=== PATIENT | female | born 1985 | race Caucasian/White ===

== ENCOUNTER → 2017-12-30 16:23 | Outpatient (CLI) | payer OTHER, MEDICAID, SELFPAY ==
[2017-12-31 15:25] LABS: Strep Grp B PCR POS for Grp B Strep
== END ==
PROVIDERS: Family Provider Physician Assistant; PCP Physician Assistant; Visit Provider Obstetrics & Gynecology
DX: Z34.83 Encounter for supervision of other normal pregnancy, third trimester (principal)
CPT/HCPCS: 87653

== ENCOUNTER 2018-01-16 05:36 | Inpatient (IN) | payer OTHER, MEDICAID, SELFPAY ==
[2018-01-16] VITALS (8 sets, daily range): BP systolic 107–132; BP diastolic 47–70; PULSE 77–91; RESP 12–16; TEMP 36.3–36.8; O2SAT 97
[2018-01-16] MEDS: LACTATED RINGERS 1,000 ML 900 ML IV (06:30)
[2018-01-16] MEDS: LACTATED RINGERS 1,000 ML 1000 ML IV (07:39)
--- NOTE | 2018-01-16 07:52 | SUR.OPER ---
Supine on Padded OR bed, head on pillow, safety belt at thigh, arms secured on padded arm boards at <90 degrees abduction. Bump under right buttock. Legs uncrossed with pillow under knees, gel pad to heels, tape over blanket to lower legs.
[2018-01-16 07:56] LABS: Add Manual Diff / Slide Review NO; Basophils Percent Auto 0.2 % (0-2); Eosinophils Percent Auto 0.6 % (2-4); Hemoglobin 12.9 g/dL (12.0-16.0); Mean Corpuscular HGB Conc 33.9 % (30-36); Mean Corpuscular Hemoglobin 29.5 PG (26-34); Mean Corpuscular Volume 87.2 fL (80-100); Monocytes Percent Auto 6.1 % (3-14); Neutrophils Absolute Auto 6000 /uL (3000-5900); Neutrophils Percent Auto 68.1 % (50-75); Platelet Count 340 X10^3/uL (150-400); Red Blood Cell Count 4.36 X10^6/uL (4.0-5.2); White Blood Cell Count 8.8 X10^3/uL (4.5-11.0)
[2018-01-16] MEDS: CEFAZOLIN 2 GM/100 ML FROZ.PIGGY IV (08:10)
[2018-01-16] MEDS: SODIUM CHLORIDE 0.9% IV (08:38)
[2018-01-16] MEDS: OXYTOCIN IV (08:38)
--- NOTE | 2018-01-16 08:45 | SUR.OPER ---
FHT's 130. TOB live male @8842. Cord blood x 2 and placenta to L&D with OB RN.
--- NOTE | 2018-01-16 09:36 | PM.PREOP ---
Pre-operative Note Interval Note Pre-op Check: Yes History & Physical Reviewed by Physician Changes: No
[2018-01-16] MEDS: LACTATED RINGERS 1,000 ML 125 ML IV ×2 (10:30→18:38)
[2018-01-16] MEDS: OXYCODONE/ACETAMINOPHEN 5/325 TABLET 1 TAB PO ×2 (15:08→18:52)
[2018-01-16] MEDS: KETOROLAC 30 MG/ML VIAL IV ×2 (15:08→21:12)
[2018-01-16] MEDS: OXYCODONE/ACETAMINOPHEN 5/325 TABLET 2 TAB PO (23:20)
[2018-01-17] MEDS: KETOROLAC 30 MG/ML VIAL IV (03:45)
[2018-01-17 06:17] LABS: Hematocrit 32.1 % (36-46); Hemoglobin 10.9 g/dL (12.0-16.0)
--- NOTE | 2018-01-17 06:36 | PM.GYNOP.1 ---
Operative Date/Time/Diagnoses Date of procedure: 01/16/18 Time of procedure: 09:15 Pre-op diagnosis: Intrauterine at 39 weeks gestation Previous section Post-op diagnosis: same Procedure: Procedures Operation Date: 01/16/18 07:45 Actual Procedures Side Surgeon p Section - Repeat Yesica Lainez MD Repeat section Indications: 39 weeks gestation Previous section Surgeon: Yesica Lainez Motorcycle Subassembly Repairer: Ann Lazaro Anesthesia Type: Spinal Operative Notes Findings: Live male Normal uterus tubes and ovaries Closure Type: primary Specimen(s): other (Cord bloods, placenta) Applied: catheter Estimated blood loss (mL): 400 Blood products transfused: none Procedure in detail: The patient was taken to the operating room where she was placed in the seated position. Spinal anesthesia with Duramorph was administered. The patient was then placed in the dorsal supine position with a leftward tilt. She was prepped and draped in the usual sterile fashion. A timeout was performed. After spinal analgesia was found to be adequate, a Pfannenstiel skin incision was made through the previous incision and carried through to the underlying layer fascia. The fascia was nicked in the midline, and the incision extended bilaterally with the Perkins scissors. The superior aspect of the fascial incision was grasped with a Monument clamps, elevated, and the underlying rectus muscles dissected off sharply and bluntly. Attention was then turned to the inferior aspect of this incision which in a similar fashion was grasped with a Lito clamps, elevated, and the underlying rectus muscles dissected off sharply and bluntly. The rectus muscles were in the midline. The peritoneum was identified, grasped between 2 hemostats, and entered sharply with the Metzenbaum scissors. This incision was extended superiorly and inferiorly with good visualization of the bladder. The bladder blade was inserted. The vesicouterine peritoneum was identified, grasped with the pickup, and entered sharply with the Metzenbaum scissors. This incision was extended bilaterally, and the bladder flap was created digitally. The bladder blade was reinserted. The lower uterine segment was incised in a transverse fashion with the scalpel. Upon entering the amniotic sac there was moderate amount of clear amniotic fluid. The 's head was delivered without difficulty. The nose and mouth were suctioned with bulb suction. The remainder of the body delivered without difficulty. The cord was double clamped and cut. The was handed off to waiting RN and RT. The placenta was delivered manually. The uterus was cleared of all clots and debris. The uterine incision was repaired with #1 chromic in a running interlocking fashion, and a second layer the same suture was used for an imbricating layer. Hemostasis was achieved. The tubes and ovaries were examined and were found to be normal. The gutters were cleared of all clots and debris. The bladder flap was reapproximated using 2-0 Vicryl in a running fashion. The parietal peritoneum was closed using 2-0 Vicryl in a running fashion. The fascia was reapproximated using 0 Vicryl in a running fashion. The subcutaneous layer was copiously irrigated with warm normal saline. 5 simple interrupted sutures of 3-0 Vicryl were placed to reapproximate the subcutaneous layer. The skin was closed with 4-0 undyed Vicryl in a subcuticular fashion. Steri-Strips were placed. An Aquacel dressing was placed. The uterus was expressed of a small amount of old blood. Sponge, lap, and instrument counts were correct x-2. The patient tolerated the procedure well, and was taken to PACU in stable condition. Complications: none Post-operative Condition: stable Disposition: PACU Plan for aftercare: Center
[2018-01-17] MEDS: OXYCODONE/ACETAMINOPHEN 5/325 TABLET 2 TAB PO ×3 (06:41→14:44)
[2018-01-17] MEDS: IBUPROFEN 600 MG TABLET PO (09:41)
[2018-01-17] MEDS: DOCUSATE 250 MG CAPSULE PO (09:42)
[2018-01-17 13:55] VITALS: BP 132/70; PULSE 77; RESP 15; TEMP 36.8
== END 2018-01-17 15:26 | disposition home or self-care (01) | DRG 540 ==
LOC: AC 05:42 → LABOR 06:17
PROVIDERS: Admitting Provider Obstetrics & Gynecology; Family Provider Physician Assistant; PCP Physician Assistant; Visit Provider Obstetrics & Gynecology
PROC: 10D00Z1 Extraction of Products of Conception, Low, Open Approach (ICD-10-PCS; CPT 59514; principal; 2018-01-16 07:45)
DX: O34.219 Maternal care for unspecified type scar from previous cesarean delivery (principal); Z3A.39 39 weeks gestation of pregnancy; Z37.0 Single live birth; O99.284 Endocrine, nutritional and metabolic diseases complicating childbirth; E06.3 Autoimmune thyroiditis
CPT/HCPCS: 36415; 59050; 59514; 85014; 85018; 85025; 86850; 86900; 86901; 94762; J0690; J1885; J2274; J2405; J2590

== ENCOUNTER → 2022-07-27 10:25 | Outpatient (CLI) | payer OTHER, MEDICAID, SELFPAY ==
--- NOTE | 2022-07-27 10:27 | DI.US.S_ITS ---
PROCEDURE: US OB >= 14 WEEKS FETUS INDICATIONS: anatomy OUTSIDE/PRIOR DATING DATA: Last menstrual period (LMP): 03/10/2022. LMP-based estimated date of delivery (RANDA): 12/15/2022. First dating scan (date and location): 07/27/2022. Estimated date of delivery (RANDA) from first dating scan: 12/14/2022. The calculations are made using the working RANDA of 12/14/2022. TECHNIQUE: Real-time scanning was performed of the fetus, with image documentation and biometric measurements. Endovaginal scanning: None COMPARISON: [facility], , OB >= 14 WEEKS FETUS, 11/09/2017, 14:10. FINDINGS: General: A single living intrauterine gestation is present. Presentation: Breech. Placenta: Placental position is anterior , without previa. Amniotic fluid index: 16.3 cm, normal range is 5-24 cm. heart rate: 137 beats per minute. Maternal cervical canal: 6.9 cm long. Normal lower limit is 2.5 cm. biometrics: Biparietal diameter: 4.6 cm, 20 week 0 day Head circumference: 17.4 cm, 19 week 6 day Abdominal circumference: 14.9 cm, 20 week 1 day Femur length: 3.2 cm, 20 week 0 day Clinically estimated gestational age: 19 week 6 day Composite gestational age from present scan: 20 week 0 day Estimated weight and percentile: 332 g, 68th percentile Anatomic survey: Neuro: Ventricles are non-dilated at less than 10 mm. Cisterna magna is normal at 3-11 mm. Cerebellum is normal in size and morphology. Nuchal skin fold: Normal at less than 6 mm between 14-21 weeks gestational age. Face: Nose and lips, facial profile are normal. Spine: No evidence for spina bifida. Heart: 4-chambered heart is present, with normal ventricular outflow tracts. Diaphragm: Diaphragm is intact. Stomach: Left-sided stomach is present. Kidneys: No hydronephrosis. Normal is less than 5 mm in 2nd trimester, less than 7 mm in 3rd trimester. Cord: 3-vessel cord has orthotopic insertion. Bladder: Normal in size. Extremities: All 4 extremities identified. IMPRESSION: Single live intrauterine consistent with 20 week 0 day gestation by current ultrasound Approved by: Lewis Jackson M.D. on 07/27/2022 at 17:17
== END ==
PROVIDERS: Family Provider Physician Assistant; Referring Provider Obstetrics & Gynecology; Visit Provider Obstetrics & Gynecology
DX: Z34.92 Encounter for supervision of normal pregnancy, unspecified, second trimester (principal); Z3A.20 20 weeks gestation of pregnancy
CPT/HCPCS: 76811

== ENCOUNTER → 2022-08-04 11:22 | Outpatient (CLI) | payer OTHER, MEDICAID, SELFPAY ==
[2022-08-04 12:58] LABS: Appearance Urine UA CLOUDY; Bilirubin Urine UA NEGATIVE (NEGATIVE); Color Urine UA YELLOW; Glucose Urine UA NEGATIVE (Negative); Ketones Urine UA NEGATIVE (NEGATIVE); Leukocyte Esterase Urine UA NEGATIVE (NEGATIVE); Nitrite Urine UA NEGATIVE (Negative); Occult Blood Urine UA NEGATIVE (Negative); Protein Urine UA NEGATIVE (Negative); Urobilinogen Urine UA 0.2 E.U./dL (0.2)
== END ==
PROVIDERS: Family Provider Physician Assistant; Visit Provider Obstetrics & Gynecology
DX: Z34.90 Encounter for supervision of normal pregnancy, unspecified, unspecified trimester (principal)
CPT/HCPCS: 81003; 87086

== ENCOUNTER → 2022-08-04 11:34 | Outpatient (CLI) | payer OTHER, MEDICAID, SELFPAY ==
[2022-08-04 12:58] LABS: Add Manual Diff / Slide Review NO; Basophils Absolute Auto 0 /uL (0-100); Basophils Percent Auto 0.3 % (0-2); Eosinophils Absolute Auto 0 /uL (0-450); Eosinophils Percent Auto 0.5 % (2-4); Hematocrit 35.8 % (36-46); Lymphocytes Absolute Auto 1800 /uL (1100-4500); Lymphocytes Percent Auto 19.3 % (25-40); Mean Corpuscular HGB Conc 33.4 % (30-36); Mean Corpuscular Hemoglobin 28.8 PG (26-34); Mean Corpuscular Volume 86.2 fL (80-100); Monocytes Absolute Auto 500 /uL (0-900); Neutrophils Absolute Auto 7000 /uL (1500-7000); Neutrophils Percent Auto 74.9 % (50-75); Platelet Count 305 X10^3/uL (150-400); Red Blood Cell Count 4.15 X10^6/uL (4.0-5.2); Red Cell Distribution Width 14.6 % (11.6-14.8); White Blood Cell Count 9.3 X10^3/uL (4.5-11.0)
[2022-08-04 13:35] LABS: Free T4, Direct Thyroxine 0.96 ng/dL (0.78-2.19)
[2022-08-04 13:49] LABS: Thyroid Stimulating Hormone 1.18 uIU/mL (0.47-4.68)
[2022-08-05 08:20] LABS: Varicella IgG Antibody 663 index (Immune >165)
[2022-08-05 09:38] LABS: RPR Screen Non Reactive (Non Reactive)
[2022-08-05 15:58] LABS: Hepatitis B Surface Antigen NEGATIVE s/c (NEGATIVE); Rubella Antibody IgG 75.9 IU/mL (>15)
[2022-08-05 16:29] LABS: HIV 1 & 2 Ab/Ag 4th Gen Combo NEGATIVE (NEGATIVE); Hep C Virus Ab w/Reflex Quant NEGATIVE s/c (NEGATIVE)
[2022-08-06 20:41] LABS: AFP, Serum 49.9 ng/mL (.); Estriol, Free 1.88 ng/mL (.); Inhibin A, Dimeric 94.16 pg/mL (.); Inhibin A, MoM 0.64 (.); Maternal Ethnicity Caucasian (.); Maternal Weight 297 lbs (.); Number of Fetuses No (.); OSBR Risk 1 IN 9231 (.); Results Report (.); Test Results *Screen Negative* (.); hCG, MoM 0.82 (.); hCG, Serum 13883 mIU/mL (.)
== END ==
PROVIDERS: Family Provider Physician Assistant; Referring Provider Obstetrics & Gynecology; Visit Provider Obstetrics & Gynecology
DX: O99.282 Endocrine, nutritional and metabolic diseases complicating pregnancy, second trimester (principal); E06.3 Autoimmune thyroiditis; Z3A.21 21 weeks gestation of pregnancy
CPT/HCPCS: 36415; 80055; 81003; 82105; 82677; 84439; 84443; 84702; 86336; 86787; 86803; 86850; 86900; 86901; 87086; 87389

== ENCOUNTER → 2022-09-22 10:53 | Outpatient (CLI) | payer OTHER, MEDICAID, SELFPAY ==
[2022-09-22 12:06] LABS: Hematocrit 34.8 % (36-46); Hemoglobin 11.8 g/dL (12.0-16.0)
[2022-09-22 12:33] LABS: GTT (PREG) 1 Hour PP 50gm Dose 105 mg/dL (76-139)
== END ==
PROVIDERS: Family Provider Physician Assistant; Referring Provider Obstetrics & Gynecology; Visit Provider Obstetrics & Gynecology
DX: Z34.82 Encounter for supervision of other normal pregnancy, second trimester (principal); Z3A.26 26 weeks gestation of pregnancy
CPT/HCPCS: 36415; 82950; 85014; 85018

== ENCOUNTER → 2022-09-28 11:59 | Outpatient (CLI) | payer OTHER, MEDICAID, SELFPAY ==
[2022-09-28 13:45] LABS: Thyroid Stimulating Hormone 1.43 uIU/mL (0.47-4.68)
== END ==
PROVIDERS: Family Provider Physician Assistant; Referring Provider Obstetrics & Gynecology; Visit Provider Obstetrics & Gynecology
DX: E06.3 Autoimmune thyroiditis (principal)
CPT/HCPCS: 36415; 84439; 84443

== ENCOUNTER → 2022-11-17 12:03 | Outpatient (CLI) | payer OTHER, MEDICAID, SELFPAY ==
[2022-11-18 10:41] LABS: Strep Grp B PCR POS for Grp B Strep
== END ==
PROVIDERS: Family Provider Physician Assistant; Visit Provider Obstetrics & Gynecology
DX: Z34.83 Encounter for supervision of other normal pregnancy, third trimester (principal); Z3A.36 36 weeks gestation of pregnancy
CPT/HCPCS: 87653

== ENCOUNTER 2022-12-06 05:43 | Inpatient (IN) | payer OTHER, MEDICAID, SELFPAY ==
[2022-12-06] VITALS (7 sets, daily range): BP systolic 120–142; BP diastolic 59–76; PULSE 86–101; RESP 9–21; TEMP 36.8–37; O2SAT 94–100
[2022-12-06 06:50] LABS: Add Manual Diff / Slide Review NO; Basophils Absolute Auto 100 /uL (0-100); Basophils Percent Auto 0.7 % (0-2); Eosinophils Absolute Auto 0 /uL (0-450); Eosinophils Percent Auto 0.5 % (2-4); Hematocrit 35.2 % (36-46); Hemoglobin 12.1 g/dL (12.0-16.0); Lymphocytes Absolute Auto 1900 /uL (1100-4500); Lymphocytes Percent Auto 19.3 % (25-40); Mean Corpuscular HGB Conc 34.3 % (30-36); Mean Corpuscular Hemoglobin 30.3 PG (26-34); Mean Corpuscular Volume 88.4 fL (80-100); Monocytes Absolute Auto 500 /uL (0-900); Monocytes Percent Auto 5.5 % (3-14); Neutrophils Absolute Auto 7100 /uL (1500-7000); Platelet Count 279 X10^3/uL (150-400); Red Blood Cell Count 3.99 X10^6/uL (4.0-5.2); White Blood Cell Count 9.7 X10^3/uL (4.5-11.0)
[2022-12-06] MEDS: CITRIC ACID/SODIUM CITRATE 15 ML SOLUTION 30 ML PO (07:47)
--- NOTE | 2022-12-06 07:48 | P.HPOB_ITS ---
OB HPI Date/Time Date of admission: 12/06/22 Date Patient Seen: 12/06/22 Time Patient Seen: 07:48 History of Present Condition Chief complaint: Section RANDA Calculator Estimated Delivery Date Method Current WG Current Estimate 12/15/22 LMP (Certain) 38w 5d Other Estimates 12/10/22 Ultrasound #1 39w 3d Estimated Gestational Age (weeks): 39 : 4 Para: 2 care: good care, initiated at week # (15), number of visits (9) and pounds weight gain (24) Dating criteria OB: LMP confirmed by 1st trimester US Ultrasounds: normal 1st trimester US and normal mid trimester US Obstetrical complications: none Medical complications OB: other (Nii thyroiditis) Indications Operative indications ( section): previous uterine surgery Preadmission Labs Last OB Lab Results: Blood Type A Positive 12/06/22 06:38 Antibody Screen Negative 12/06/22 06:38 Hematocrit 35.2 % (36-46) L 12/06/22 06:38 Hemoglobin 12.1 g/dL (12.0-16.0) 12/06/22 06:38 Hepatitis B Surface Antigen Negative s/c (NEGATIVE) 08/04/22 12 :03 Hepatitis C Antibody Negative s/c (NEGATIVE) 08/04/22 12:03 Rubella Antibody 75.9 IU/mL (>15) 08/04/22 12:03 Varicella-Zoster IgG Antibody 663 index (Immune >165) 08/04/22 12:03 Glucose 1 Hour 105 mg/dL (76-139) 09/22/22 10:58 Group B Streptococcus (PCR) Pos for grp b strep H 11/17/22 12:0 3 -: Chlamydia screen: negative, Gonorrhea screen: negative and Urine: negative -: PAP smear: Normal Genetic Screens: Quad screen: Normal External Labs -: Urine: negative Prior (ies) Past Pregnancies Del. Date GA/Weeks Labor Lgth Wt Sex Route Outcome Anesthesia Place Delv Breastfeed Preg Comp Name 06/30/14 42 24 7 lb 11 oz Male live - full term IH 2 years post-dates induction failure to progress Jose 08/17/16 9.4 spontaneous 01/16/18 39 9 lb Male live - full term IH 2.5 years none [place] Delivery Date: 08/17/16 Last Updated by: Madonna Alicea RN excessive bleeding, required D&C for retained POC Evaluation Evaluation Baseline heart rate: 135 Variability: Moderate (11-25) monitor accelerations: Present Monitor Decelerations: Absent Status: Category l PFSH Surgical History (Updated 01/24/18 @ 11:51 by Idalia Agrawal LPN) S/P section (01/16/18) Status post dilation and curettage (08/17/16) Family History (Updated 06/24/22 @ 15:12 by Madonna Alicea RN) Father Diabetes mellitus Grandmother Renal cancer Family/Other Fibromyalgia Social History marital status: number of children: 2 household members: spouse and children lives independently: Yes caregiver/support person: Yes housing: house pets and animals: Yes (1 dog; aware of toxo precautions) education level: college (some college) occupational status: unemployed current occupational exposures/hazards: No special chad needs: No travel history: over 6 months ago seatbelt use: always water heater temp set < 120 deg: No working smoke detector in home: Yes fire extinguisher in home: No carbon monox detector in home: Yes firearms in home: No do you feel safe at home: Yes Smoking Status: Never smoker second hand exposure: No alcohol intake: former (3-6/week when not ) substance use type: does not use during the past year weight has: increased > 10 lbs well-balanced diet: about half the time daily servings fruits/ve-4 caffeine: No (not when ) Type(s) of exercise: walking Meds Home Medications and Allergies Home Medications Medication Instructions Recorded Confirmed Type prenat.vits,kelby,gun-wfxp-tmlex 1 tab PO DAILY 06/24/22 11/30/22 History vitamin C 90 mg-zinc gluconate 15 дмитрий PO DAILY PRN 06/24/22 11/30/22 History mg-herbal complex no. 325 lozenges (Elderberry Zinc Vit C) Allergies Allergy/AdvReac Type Severity Reaction Status Date / Time wheat Allergy Intermediate Joint Pain Verified 11/30/22 10:36 OB Exam Narrative Exam Narrative: HEENT: [No thyromegaly, no anterior cervical or supraclavicular lymphadenopathy.] Lungs:[Clear to auscultation bilaterally, no wheezes.] Cardiovascular: [Regular rate and rhythm, no murmurs, rubs, or gallops]. Abdomen: [Well-healed scars. No hepatosplenomegaly. No masses palpable.] Fundal height: 41cm EFW: 8# Extremities: Trace edema Objective Labs 12/06/22 06:38 Labs: Laboratory Results - last 24 hr 12/06/22 06 06:38 06:38 WBC 9.7 RBC 3.99 L Hgb 12.1 Hct 35.2 L MCV 88.4 MCH 30.3 MCHC 34.3 RDW 14.0 Plt Count 279 Neut % (Auto) 74.0 Lymph % (Auto) 19.3 L [place] % (Auto) 5.5 Eos % (Auto) 0.5 L Baso % (Auto) 0.7 Neut # (Auto) 7100 H Lymph # (Auto) 1900 [place] # (Auto) 500 Eos # (Auto) 0 Baso # (Auto) 100 Blood Type A Positive Antibody Screen Negative Assessment and Plan Assessment and Plan Assessment and Plan narrative: Assessment: 37-year-old 4 para 2 at an estimated gestational age of 39 weeks Previous section Plan: Repeat low-transverse section The risks, benefits, and alternatives to the procedure were explained to the patient. The risks including bleeding, infection, injury to the bowel, bladder, or ureters. She understands these risks and agrees to proceed. A full par Q was held and consent form was signed. Time Spent with Patient Total time spent with greater than 50% in coordination of care (as documented) at patient's floor/unit and/or counseling patient:: less than 15 minutes
--- NOTE | 2022-12-06 07:54 | PM.PREOP ---
Pre-operative Note COVID-19 Criteria for continued procedure: Non-surgical alternatives not available or appropriate per current SOC Interval Note History & Physical reviewed/Exam performed by Physician: Yes Changes to H&P: No H&P completed within 30 days and has changed as indicated here:: 12/06/22
[2022-12-06] MEDS: CEFAZOLIN VIAL 3 GM in SODIUM CHLORIDE 0.9% 100 ML IV (08:15)
--- NOTE | 2022-12-06 09:49 | SUR.PHASEI ---
Report given to LALY Payton who was at pt bedside through recovery, pt and baby transfered to center at 0938 by LALY Marsh
[2022-12-06] MEDS: ACETAMINOPHEN 325 MG TABLET 650 MG PO ×2 (11:06→18:11)
[2022-12-06] MEDS: KETOROLAC 30 MG/ML VIAL IV ×2 (15:02→22:18)
--- NOTE | 2022-12-06 18:57 | PM.OBCS.1 ---
Operative Date/Time/Diagnoses Date of procedure: 12/06/22 Time of procedure: 09:15 Pre-op diagnosis: Estimated gestational age of 39 weeks Previous section Post-op diagnosis: same Procedure & Clinicians Procedure: Repeat low-transverse section Same procedure as scheduled: Yes Indications: Estimated gestational age of 39 weeks Previous section Surgeon: Yesica Lainez Click Yes if Unassisted: No Ophthalmic Surgeon: Ann Lazaro Reason for Ophthalmic Surgeon: The entry level administrative assistant was necessary to retract upon entry into the abdomen and uterus. She assisted with delivery of the infant with fundal pressure. She assisted with closure of the uterus and abdomen with retraction, clipping of suture, and closure of the contralateral fascia. Anesthesia Type: Spinal (With Duramorph) Operative Notes Findings: Live female in the DA[place] presentation Normal uterus, tubes, and ovaries Closure Type: primary Specimen(s): cord blood and placenta Intraoperative meds administered: Duramorph, Ketorolac and Pitocin Applied: Catheter (To continuous drainage) Estimated Blood Loss (mL): 500 Blood products transfused: none Procedure in detail: The patient was taken to the operating room where she was placed in the seated position. Spinal anesthesia with Duramorph was administered. The patient was then placed in the dorsal supine position with a leftward tilt. She was prepped and draped in the usual sterile fashion. A timeout was performed. After spinal analgesia was found to be adequate, a Pfannenstiel skin incision was made through the previous incision and carried through to the underlying layer fascia. The fascia was nicked in the midline, and the incision extended bilaterally with the Perkins scissors. The superior aspect of the fascial incision was grasped with a Lito clamps, elevated, and the underlying rectus muscles dissected off sharply and bluntly. Attention was then turned to the inferior aspect of this incision which in a similar fashion was grasped with a Lito clamps, elevated, and the underlying rectus muscles dissected off sharply and bluntly. The rectus muscles were in the midline. The peritoneum was identified, grasped between 2 hemostats, and entered sharply with the Metzenbaum scissors. This incision was extended superiorly and inferiorly with good visualization of the bladder. The bladder blade was inserted. The vesicouterine peritoneum was identified, grasped with the pickup, and entered sharply with the Metzenbaum scissors. This incision was extended bilaterally, and the bladder flap was created digitally. The bladder blade was reinserted. The lower uterine segment was incised in a transverse fashion with the scalpel. Upon entering the amniotic sac there was moderate amount of clear amniotic fluid. The infant's head was delivered without difficulty. The nose and mouth were suctioned with bulb suction. The remainder of the body delivered without difficulty. The cord was double clamped and cut after one minute. The was handed off to waiting RN and RT. The placenta was delivered by expression. The uterus was cleared of all clots and debris. The uterine incision was repaired with #1 chromic in a running interlocking fashion, and a second layer the same suture was used for an imbricating layer. Hemostasis was achieved. The tubes and ovaries were examined and were found to be normal. The gutters were cleared of all clots and debris. The bladder flap was reapproximated using 2-0 Vicryl in a running fashion. The parietal peritoneum was closed using 2-0 Vicryl in a running fashion. The fascia was reapproximated using 0 Vicryl in a running fashion. The subcutaneous layer was copiously irrigated with warm normal saline. 5 simple interrupted sutures of 3-0 Vicryl were placed to reapproximate the subcutaneous layer. The skin was closed with 4-0 Monocryl in a subcuticular fashion. Steri-Strips were placed. An Aquacel dressing was placed. The uterus was expressed of a small amount of old blood. Sponge, lap, and instrument counts were correct x-2. The patient tolerated the procedure well, and was taken to PACU in stable condition. Complications: none Baby 1: Gender: Female Presentation: vertex Position: Left Occiput Anterior Placental Delivery Description: Expressed Cord Vessel Description: 3 Vessels score (1 min): 8 score (5 min): 9 weight: 7 lb 9 oz Post-operative Condition: stable Disposition: PACU Aftercare: routine postop
[2022-12-07] MEDS: ACETAMINOPHEN 325 MG TABLET 650 MG PO ×3 (00:07→12:25)
[2022-12-07] MEDS: KETOROLAC 30 MG/ML VIAL IV (04:52)
[2022-12-07] MEDS: PRENATAL VIT,CALC/IRON/FOLIC 1 TABLET 1 TAB PO (08:53)
[2022-12-07] MEDS: DOCUSATE 100 MG CAPSULE PO (08:53)
[2022-12-07] MEDS: IBUPROFEN 600 MG TABLET PO (11:27)
--- NOTE | 2022-12-12 21:45 | PM.OBDS.1 ---
Discharge Providers Provider Date of admission: 12/06/22 05:43 Discharge Date: 12/07/22 Primary care physician: Doctor Yaritza MD Consults: 12/06/22 10:14 Consult to City Treasurer Routine Comment: Discharge provider: Yesica Lainez MD Summary Hospital Course Date Patient Seen: 12/07/22 Time Patient Seen: 13:00 Diagnoses: EGA 39 weeks Previous C section Repeat C section Hospital Course: Patient is a 37-year-old 4 para 3 who presented on December 06, 2022 for a scheduled repeat section at estimated gestational age of 39 weeks. She underwent this procedure without complication. Her postoperative course was unremarkable. Her Rick catheter was removed on postop day #0. She was able to void without the catheter. Her pain was well controlled. She was tolerating a diet. No nausea or vomiting. was going well. She was discharged home on postop day #1. Peripartum Data Delivery Method: Section (repeat) Procedures: Spinal anesthesia Repeat low transverse C section complications: none [place] 1: Gender: Female Disposition of : home Status at Discharge Cognitive/behavioral status at discharge: oriented Functional status at discharge: independent ambulation Overall status at discharge: patient is progressing back to baseline Time Spent with Patient Time attestation: Total time spent providing and/or coordinating discharge services: Time spent: Less than 30 minutes Objective Labs 12/06/22 06:38 Exam Vital Signs (past 8 hours): Oxygen Delivery Method Room Air Narrative Exam Narrative: Generally: Patient is sitting up in bed, holding , no acute distress Lungs: Clear to auscultation bilaterally Cardiovascular: Regular rate and rhythm Fundus: Firm at U -1 Incision: C/D/I with Aquacel dressing Extremities: Trace edema, negative [place] Discharge Plan Discharge Plan Patient Disposition: Home Provider Discharge Comment: Call with fever, chills, redness or drainage around the incision, or bleeding vaginally more than pad in an hour Ibuprofen 600 mg every 6 hours as needed Tylenol 650 mg every 6 hours as needed Stool softener as needed Discharge orders & Medications Prescriptions: New oxycodone 5 mg tablet 5 mg PO Q4H PRN (Reason: pain) Qty: 10 0RF Continued prenat.vits,kelby,qsv-nlln-maydf Tablet 1 tab PO DAILY Elderberry Zinc Vit C 90-15 mg lozenge PO DAILY PRN Follow up/Referrals: Yesica Lainez MD [Physician] - 1 Week (Please follow up with Dr. Lainez on Tuesday, December 13 @ 3:30PM for a one week dressing removal. Call the clinic with any questions) Diet/Activity/Treatments Diet: Regular Activity: Nothing in the vagina for 6 wks No heavy lifting Skin/Wound/Dressing Care Report to your healthcare provider any signs of infection, such as:: chills, fever, increased pain, unusual drainage and unusual redness Dressing: Do not remove Visit Report/Discharge Packet Instructions: DI for , DI for Prescription Opioid Use Stand Alone Forms: Discharge: Care, Patient Portal/API, Stroke Signs & Symptoms Discharge Data Primary Care Provider: Miscellaneous,Doctor Discharges patient from system. Discharge Date/Time: 12/07/22 13:15
== END 2022-12-07 13:15 | disposition home or self-care (01) | DRG 540 ==
PROVIDERS: Admitting Provider Obstetrics & Gynecology; Family Provider Physician Assistant; Referring Provider Obstetrics & Gynecology; Visit Provider Obstetrics & Gynecology
PROC: 10D00Z1 Extraction of Products of Conception, Low, Open Approach (ICD-10-PCS; CPT 59514; principal; 2022-12-06 07:45)
DX: O34.211 Maternal care for low transverse scar from previous cesarean delivery (principal); Z3A.39 39 weeks gestation of pregnancy; Z37.0 Single live birth; O99.284 Endocrine, nutritional and metabolic diseases complicating childbirth; E06.3 Autoimmune thyroiditis; O99.824 Streptococcus B carrier state complicating childbirth
CPT/HCPCS: 36415; 59050; 59514; 85025; 86850; 86900; 86901; J0690; J1885; J2274; J2590

== ENCOUNTER → 2023-01-18 12:17 | Outpatient (CLI) | payer OTHER, MEDICAID, SELFPAY ==
[2023-01-18 13:36] LABS: Free T4, Direct Thyroxine 1.22 ng/dL (0.78-2.19)
[2023-01-18 13:50] LABS: Thyroid Stimulating Hormone 1.12 uIU/mL (0.47-4.68)
== END ==
PROVIDERS: Family Provider Physician Assistant; Referring Provider Obstetrics & Gynecology; Visit Provider Obstetrics & Gynecology
DX: E06.3 Autoimmune thyroiditis (principal)
CPT/HCPCS: 36415; 84439; 84443